=== PATIENT | male | born 1990 | race Caucasian/White ===

== ENCOUNTER 2020-05-05 22:16 | Emergency (ER) | payer BC, SELFPAY ==
[2020-05-05 22:25] VITALS: BP 179/96; PULSE 104; RESP 18; TEMP 36.8; O2SAT 96; BMI 48.8
--- NOTE | 2020-05-05 22:33 | CT_ITS ---
PROCEDURE: CT LUMBAR SPINE WO CON CLINICAL HISTORY: Twisting injury Pain following injury COMPARISON: No exams were available for comparison TECHNIQUE: Axial images obtained with sagittal and coronal reformats. All CT scans at the facility use one or more dose reduction, viz: automated exposure control, ma/kV adjustment per patient size (including targeted exams where dose is matched to indication, i.e. head), or iterative reconstruction technique. FINDINGS: Normal alignment. No acute fracture or dislocation. No lytic or blastic change. Minimal bulging disc L5-S1 slightly eccentric toward the right. 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 IMPRESSION: 1. No acute finding. 2. 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
--- NOTE | 2020-05-05 22:33 | CT_ITS ---
PROCEDURE: CT THORACIC SPINE WO CON CLINICAL HISTORY: Twisting injury Pain, back pain COMPARISON: No exams were available for comparison TECHNIQUE: Axial images obtained with sagittal and coronal reformats. All CT scans at the facility use one or more dose reduction, viz: automated exposure control, ma/kV adjustment per patient size (including targeted exams where dose is matched to indication, i.e. head), or iterative reconstruction technique. FINDINGS: Normal alignment. Mild multilevel degenerative changes with decrease in the disc spaces and minimal formation. There is slight decrease in height anteriorly involving T10, T11 and T12 which is age indeterminate. If pain persists, MRI may provide further evaluation IMPRESSION: Mild degenerative changes with minimal loss of height anteriorly of T10, T11 and T12 which is age indeterminate and could be developmental or due to minimal wedging .. MRI may provide further evaluation if clinically warranted Dictated by: Ritchie Sewell MD 05/06/2020 05:51 Ritchie Sewell MD in [facility] 05/06/2020 05:51
--- NOTE | 2020-05-05 23:18 | [facility].EDBACK ---
ED Disposition Clinical Impression: Thoracic back pain Qualifiers: Chronicity: acute Back pain laterality: midline Qualified Code(s): M54.6 - Pain in thoracic spine Strain of lumbar region Qualifiers: Encounter type: initial encounter Qualified Code(s): S39.012A - Strain of muscle, fascia and tendon of lower back, initial encounter Disposition: Home, Self-Care Condition on Discharge: Good Instructions: DI for Low Back Pain Additional Instructions: call pcp for follow up of back pain and blood pressure Prescriptions: predniSONE [Prednisone 20mg Tab] 20 mg PO BID #10 tab Prescription Printed Referrals: PCP,No [Primary Care Provider] - - Critical Care Critical Care Time: No Attestation: On 05/05/20, the high probability of a clinically significant, sudden or life threatening deterioration of the following system(s) required my full and direct attention, intervention and personal management. The time I documented below is in addition to time spent performing reported procedures but includes the following listed in this critical care notation. Medical Decision Making - Medical Records Medical records reviewed: Yes: I reviewed the patient's medical records. - Marcio Inquiry Pt receiving controlled substance: No Vital Signs: 05/05/20 22:25 Temperature 98.2 F Temperature Source Oral Pulse Rate [Right] 104 H Respiratory Rate 18 Blood Pressure [Right Arm] 179/96 H Blood Pressure Mean [Right Arm] 123 Blood Pressure Source [Right Arm] Automatic Cuff Blood Pressure Position [Right Arm] Sitting 02 Sat by Pulse Oximetry 96 Oxygen Delivery Method Room Air - Lab Data Lab results reviewed: Yes: I reviewed the patient's lab results. Orders (Tests/Meds): ED MEDICATIONS Discontinued Medications Generic Name Dose Route Start Last Admin Trade Name Bri PRN Reason Stop Dose Admin Dexamethasone Sodium Phosphate 8 mg 05/05/20 22:34 05/05/20 22:38 Dexamethasone 4mg/Ml 1ml Vial IV 05/05/20 22:35 8 mg ONCE ONE Administration Ketorolac Tromethamine 60 mg 05/05/20 22:34 05/05/20 22:38 Ketorolac 60mg/2ml Vial IM 05/05/20 22:35 60 mg ONCE ONE Administration ORDERS Category Date Time Status CT lumbar spine wo con Stat Cat Scan 05/05/20 22:[address] thoracic spine wo con Stat Cat Scan 05/05/20 22:33 Taken - CT Data CT Scan: T-Spine, L-Spine Time Received: 00:[address] Reviewed: Yes: I have viewed the radiologist's interpretation Preliminary Findings: No Fracture Seen Medical Decision Narrative: has pain with rom and rest with neg ct will treat conservative at this time and follow up with pcp Back Pain HPI - General Chief Complaint: Back Pain/Injury Stated Complaint: [id number] injured back Time Seen by Provider: 05/05/20 23:00 Mode of Arrival: Ambulatory Source of Information: Patient, Medical Record Limitations: No Limitations Description of Symptoms (Recalled from ER Triage Doc. by RN): Pt states he twisted to roll out of bed today and felt a pop in his lower back and is now having lower back pain. Pt denies any previous back injuries. - History of Present Illness HPI Narrative: about 4 hrs ptaa rolled in bed with pop and lumbar and t spine pain MD Complaint: back pain Onset (ago): hour(s) Duration: constant Similar Symptoms Previously: No Location: lumbar spine, thoracic spine Severity: moderate Quality: sharp Radiation: none Context: turning/twisting Associated symptoms: denies other symptoms - Related Data Home Medications Medication Instructions Recorded Confirmed Lisinopril 40mg Tablet 40 mg PO DAILY 08/08/17 08/08/17 Metoprolol Tartrate 50 mg PO BID 08/08/17 08/08/17 Previous Rx's Medication Instructions Recorded Ibuprofen [Ibuprofen 600mg Tab] 600 mg PO Q6HP PRN #20 tab 08/08/17 predniSONE [Prednisone 20mg 20 mg PO BID #10 tab 05/06/20 Tab] Allergies Allergy/AdvReac Type Severity Reaction Status Date / Time No
[2020-05-06 01:13] VITALS: BP 172/84; PULSE 96; RESP 16; TEMP 36.8; O2SAT 99
== END 2020-05-06 01:15 | disposition home or self-care (01) ==
PROVIDERS: Emergency Provider Emergency Medicine
DX: S39.012A Strain of muscle, fascia and tendon of lower back, initial encounter (principal); X50.1XXA Overexertion from prolonged static or awkward postures, initial encounter; Y92.013 Bedroom of single-family (private) house as the place of occurrence of the external cause; I10 Essential (primary) hypertension; Z79.899 Other long term (current) drug therapy; E66.01 Morbid (severe) obesity due to excess calories; Z68.42 Body mass index [BMI] 45.0-49.9, adult
CPT/HCPCS: 72128; 72131; 96372; 99282